=== PATIENT | female | born 1990 | race American Indian/Alaskan Native ===

== ENCOUNTER 2020-03-30 12:26 | Emergency (ER) | payer MEDICAID ==
[~2020-03-30] VITALS: Ht 160 cm; Wt 80.3 kg
[2020-03-30] MEDS ORDERED: SODIUM CHLORIDE 0.9% 1,000 ML IV ONE (13:00)
[2020-03-30 13:34] LABS: BASOPHILS % 0.3 % (0.0-2.0); EOSINOPHILS % 1.6 % (0.0-5.0); HEMATOCRIT. 39.6 % (36.0-48.0); HEMOGLOBIN. 13.6 g/dL (12.0-16.0); LYMPHOCYTES % 27.9 % (20.0-50.0); MEAN CORPUSCULAR HEMOGLOBIN 29.8 pg (28.0-32.0); MEAN PLATELET VOLUME 8.6 fl (7.4-10.4); MONOCYTES % 6.3 % (2.0-8.0); NEUTROPHILS % 63.9 % (40.0-76.0); PLATELET 371 x1000/uL (130-400); RED BLOOD CELL COUNT 4.55 mill/uL (4.2-5.4); RED CELL DISTRIBUTION WIDTH 12.9 % (11.6-14.6)
[2020-03-30 13:39] LABS: CHLORIDE 104 mEq/L (98-107)
[2020-03-30 13:43] LABS: ETHANOL BLOOD < 10 mg/dL; PROTHROMBIN TIME 10.1 sec (9.6-11.0)
[2020-03-30 13:44] LABS: HCG SCREEN NEGATIVE
[2020-03-30 13:46] LABS: LDL CHOLESTEROL 159 mg/dL (5-100)
[2020-03-30 14:23] LABS: CLARITY URINE CLEAR (CLEAR); COLOR URINE YELLOW (YELLOW); KETONES URINE NEGATIVE (NEGATIVE); LEUKOCYTE ESTERASE URINE 1+ (NEGATIVE); NITRITE URINE NEGATIVE (NEGATIVE); OCCULT BLOOD URINE NEGATIVE (NEGATIVE); PH URINE 6.5 (4.5-8.0); PROTEIN URINE NEGATIVE (NEGATIVE); UROBILINOGEN URINE 0.2 E.U./dL (0.2-1.0)
[2020-03-30 15:07] LABS: OPIATES URINE SCREEN NEGATIVE (NEGATIVE)
[2020-03-30 15:08] LABS: *AMPHETAMINES SCREEN URINE NEGATIVE (NEGATIVE); *BARBITURATES SCREEN URINE NEGATIVE (NEGATIVE); *BENZODIAZEPINES SCREEN URINE NEGATIVE (NEGATIVE); *COCAINE SCREEN URINE NEGATIVE (NEGATIVE); CANNABINOID URINE SCREEN NEGATIVE (NEGATIVE); PHENCYCLIDINE URINE SCREEN NEGATIVE (NEGATIVE)
[2020-03-30 15:09] LABS: METHADONE URINE SCREEN NEGATIVE (NEGATIVE)
[2020-03-30 17:45] VITALS: BP 118/78
== END 2020-03-30 17:45 | disposition home or self-care (01) ==
LOC: ER 12:26
DX: R53.1 Weakness (principal); R20.0 Anesthesia of skin; Z86.59 Personal history of other mental and behavioral disorders; Z88.1 Allergy status to other antibiotic agents; Z88.5 Allergy status to narcotic agent; Z88.6 Allergy status to analgesic agent
CPT/HCPCS: 36415; 70450; 70496; 70498; 71045; 80053; 80305; 80320; 81003; 81025; 82962; 83690; 83721; 84484; 84703; 85025; 85610; 93005; 96360; 99285; J7030; G0480